=== PATIENT | female | born 1990 | race African-American/Black ===

== ENCOUNTER 2016-08-17 23:21 | Emergency (ER) | payer OTHER ==
[2016-08-18] MEDS ORDERED: AZITHROMYCIN 250 MG TABLET PO STA (00:02)
[2016-08-18] MEDS ORDERED: cefTRIAXone 250 MG VIAL IM STA (00:02)
[2016-08-18] MEDS ORDERED: metroNIDAZOLE 250 MG TABLET PO STA (00:02)
[2016-08-18] MEDS ORDERED: ONDANSETRON ODT 4 MG TABLET TL STA (00:02)
[2016-08-18] MEDS ORDERED: cefTRIAXone 250 MG VIAL ONE (00:07)
[2016-08-18] MEDS ORDERED: metroNIDAZOLE 250 MG TABLET PO ONE (00:07)
[2016-08-18] MEDS ORDERED: ONDANSETRON ODT 4 MG TABLET ONE (00:07)
[2016-08-18] MEDS ORDERED: AZITHROMYCIN 250 MG TABLET PO ONE (00:07)
[2016-08-18] MEDS ORDERED: LIDOCAINE-MPF 1% 5 ML VIAL ONE (00:07)
== END 2016-08-18 00:15 | disposition home or self-care (01) ==
DX: Z20.2 Contact with and (suspected) exposure to infections with a predominantly sexual mode of transmission (principal)
CPT/HCPCS: 81003; 81025; 87210; 87491; 87591; 96372; 99283; A9270; Q0162